=== PATIENT | male | born 1960 | race Caucasian/White ===

== ENCOUNTER 2022-10-31 08:55 | Inpatient (IN) ==
[2022-10-31 09:59] LABS: ABS Eosinophils 0.1 10^3/uL (0.0-0.5); ABS Lymphocytes 1.3 10^3/uL (1.0-4.8); ABS Monocytes 0.6 10^3/uL (0.0-1.1); ABS Neutrophils 5.5 10^3/uL (1.5-7.6); ABS Nucleated RBC 0.02 10^3/ul; Eosinophil % 0.9 %; Hematocrit 18.6 % (38-53); Hemoglobin 6.6 g/dL (13.2-16.3); Lymphocyte % 16.9 %; Mean Corpuscular Hemoglobin 32.3 pg (27-33); Mean Corpuscular Hgb Conc 35.7 g/dL (31-36); Mean Corpuscular Volume 90.6 fL (80-97); Mean Platelet Volume 7.7 fL (7.5-11.2); Nucleated Red Blood Cells % 0.2 /100 WBC (0.0-0.4); Platelet Count 187 10^3/uL (150-450); Red Blood Count 2.05 10^6/uL (4.06-5.63); Red Cell Distribution Width 16.8 % (12-17); White Blood Count 7.4 10^3/uL (3.6-10.2)
[2022-10-31 10:03] LABS: INR 1.93 (0.88-1.18)
[2022-10-31 10:34] LABS: Albumin 3.6 g/dL (3.2-5.2); Albumin/Globulin Ratio 2.8 (1-3); Creatinine, Serum 0.85 mg/dL (0.67-1.17); Globulin 1.3 g/dL (2-4); Potassium 4.1 mmol/L (3.5-5.0); Total Protein 4.9 g/dL (6.4-8.9); eGFR CKD-EPI 98.2 (>60)
[2022-10-31 11:22] LABS: High Sensitivity Troponin 1 Hr 14 pg/mL (<20)
[2022-10-31] MEDS ORDERED: Iodixanol (CONTRAST) 320 MG/ML 100 ML SDV IV ONE (12:25)
[2022-10-31] MEDS ORDERED: NS 0.9% 1000 ml BAG 1,000 ML IV ONE (13:10)
[2022-10-31] MEDS ORDERED: Pantoprazole VIAL 40 MG VIAL IV ONE (13:37)
[2022-10-31 14:46] LABS: Direct Bilirubin 0.4 mg/dL (0.03-0.18); Indirect Bilirubin 1.6 mg/dL (0.3-1.0)
[2022-10-31 16:44] LABS: Hematocrit 19.4 % (38-53); Hemoglobin 6.9 g/dL (13.2-16.3)
[2022-10-31] MEDS: Pantoprazole VIAL 40 MG VIAL IV SCH (21:28)
[2022-10-31 22:20] LABS: Hematocrit 22.3 % (38-53); Hemoglobin 7.8 g/dL (13.2-16.3)
[2022-11-01] MEDS: Pantoprazole VIAL 40 MG VIAL IV SCH ×2 (07:49→22:36)
[2022-11-01 08:14] LABS: ABS Eosinophils 0.1 10^3/uL (0.0-0.5); ABS Lymphocytes 0.7 10^3/uL (1.0-4.8); ABS Monocytes 0.3 10^3/uL (0.0-1.1); ABS Neutrophils 3.3 10^3/uL (1.5-7.6); ABS Nucleated RBC 0.02 10^3/ul; Eosinophil % 1.8 %; Hematocrit 22.1 % (38-53); Hemoglobin 7.7 g/dL (13.2-16.3); Lymphocyte % 15.9 %; Mean Corpuscular Hemoglobin 30.6 pg (27-33); Mean Corpuscular Hgb Conc 34.9 g/dL (31-36); Mean Corpuscular Volume 87.6 fL (80-97); Mean Platelet Volume 7.7 fL (7.5-11.2); Nucleated Red Blood Cells % 0.5 /100 WBC (0.0-0.4); Platelet Count 136 10^3/uL (150-450); Red Blood Count 2.52 10^6/uL (4.06-5.63); Red Cell Distribution Width 16.9 % (12-17); White Blood Count 4.3 10^3/uL (3.6-10.2)
[2022-11-01 08:52] LABS: Albumin/Globulin Ratio 2.7 (1-3); Calcium 7.1 mg/dL (8.6-10.3); Creatinine, Serum 0.8 mg/dL (0.67-1.17); Globulin 1.1 g/dL (2-4); Potassium 3.6 mmol/L (3.5-5.0); Total Bilirubin 2.4 mg/dL (0.2-1.0); Total Protein 4.1 g/dL (6.4-8.9); eGFR CKD-EPI 100.1 (>60)
[2022-11-01 13:49] LABS: Ferritin 21.1 ng/mL (24-336)
[2022-11-01] MEDS ORDERED: Midazolam 2 mg/2 ml VIAL 1 mg/ml 2 ml VIAL (2 mg) ONE (15:19)
[2022-11-01] MEDS ORDERED: fentaNYL 100 mcg/2 ml 50 MCG/ML VIAL ONE (15:20)
[2022-11-01] MEDS ORDERED: Midazolam 10 mg/10 ml VIAL 1 mg/ml 10 ml VIAL (10 mg) IV SLOW PU ONE (16:32)
[2022-11-01] MEDS ORDERED: Naloxone 0.4 mg VIAL 0.4 mg/ml 1 ml VIAL IV PUSH PRN (16:32)
[2022-11-01] MEDS ORDERED: fentaNYL 100 mcg/2 ml 50 MCG/ML VIAL IV SLOW PU ONE (16:32)
[2022-11-01] MEDS ORDERED: Ondansetron 4 mg VIAL 2 MG/ML 2 ml VIAL IV ONE (16:32)
[2022-11-01] MEDS ORDERED: Lactated Ringers 1000 ml BAG 1,000 ML IV ONE (16:32)
[2022-11-01] MEDS ORDERED: Flumazenil 0.5 mg/5 ml 0.1 MG/ML 5 ml VIAL IV PRN (16:32)
[2022-11-01] MEDS ORDERED: Lidocaine 2% JELLY 6 ML Topical TOPICAL ONE (16:32)
[2022-11-01] MEDS ORDERED: Midazolam 10 mg/10 ml VIAL 1 mg/ml 10 ml VIAL (10 mg) ONE (16:40)
[2022-11-02 06:48] LABS: ABS Eosinophils 0.1 10^3/uL (0.0-0.5); ABS Lymphocytes 0.9 10^3/uL (1.0-4.8); ABS Monocytes 0.3 10^3/uL (0.0-1.1); ABS Neutrophils 3.6 10^3/uL (1.5-7.6); ABS Nucleated RBC 0.01 10^3/ul; Eosinophil % 1.5 %; Hematocrit 23.5 % (38-53); Hemoglobin 8.2 g/dL (13.2-16.3); Lymphocyte % 18.2 %; Mean Corpuscular Hemoglobin 31.1 pg (27-33); Mean Corpuscular Hgb Conc 34.9 g/dL (31-36); Mean Platelet Volume 7.3 fL (7.5-11.2); Nucleated Red Blood Cells % 0.2 /100 WBC (0.0-0.4); Platelet Count 149 10^3/uL (150-450); Red Blood Count 2.64 10^6/uL (4.06-5.63); Red Cell Distribution Width 17.3 % (12-17); White Blood Count 4.9 10^3/uL (3.6-10.2)
[2022-11-02 07:14] LABS: Albumin 3.3 g/dL (3.2-5.2); Calcium 8.1 mg/dL (8.6-10.3); Creatinine, Serum 0.94 mg/dL (0.67-1.17); Direct Bilirubin 0.2 mg/dL (0.03-0.18); Globulin 1.1 g/dL (2-4); Indirect Bilirubin 1.9 mg/dL (0.3-1.0); Potassium 4.1 mmol/L (3.5-5.0); Total Bilirubin 2.1 mg/dL (0.2-1.0); Total Protein 4.4 g/dL (6.4-8.9); eGFR CKD-EPI 91.7 (>60)
[2022-11-02] MEDS: Pantoprazole VIAL 40 MG VIAL IV SCH (08:28)
[2022-11-02] MEDS ORDERED: Aspirin EC 81 mg TAB.EC (enteric coated) PO SCH (10:00)
[2022-11-02 11:13] VITALS: BP 118/53
[2022-11-06 15:33] LABS: Anaplasma phagocytophilum Negative (Negative); B. miyamotoi PCR, B Negative (Negative); Babesia divergens/MO-1 Negative (Negative); Babesia ducani Negative (Negative); Ehrlichia chaffeensis Negative (Negative); Ehrlichia ewingii/canis Negative (Negative); Ehrlichia muris eauclairensis Negative (Negative)
== END 2022-11-02 17:21 | disposition home or self-care (01) | DRG 663 ==
LOC: ED 08:55 → EDHOLD 14:21 → SUATTDRO 14:21 → EDHOLD 11-01 10:47 → MEDTELE 11-01 10:54
PROVIDERS: ADMIT Internal Medicine; ATTEND Internal Medicine